=== PATIENT | female | born 1995 | race Caucasian/White ===

== ENCOUNTER → 2017-07-07 | Outpatient (CLI) | payer OTHER ==
--- NOTE | 2017-07-07 14:50 | MR ---
EXAMINATION TYPE: MR angio head wo con DATE OF EXAM: 07/07/2017 COMPARISON: NONE HISTORY: Headache / Dizziness and giddiness TECHNIQUE: Time of flight images focusing on the [place] of [place] were performed without contrast.. 2-D and 3-D postprocessing imaging is performed on MRI scanner. FINDINGS: There is codominant vertebral basilar system. Vertebral arteries are patent to basilar junc tion. There are patent posterior communicating arteries identified bilaterally. There is no aneurysma l change or significant focal stenosis seen. Images of the anterior circulation show patent anterior communicating artery. There is no significant focal stenosis or aneurysmal change identified. IMPRESSION: No aneurysmal change at the level of the [place] of [place].
--- NOTE | 2017-07-07 14:53 | MR ---
EXAMINATION TYPE: MR brain wo con DATE OF EXAM: 07/07/2017 COMPARISON: NONE HISTORY: Headache / Dizziness and giddiness TECHNIQUE: Multiplanar, multisequence imaging of the brain and brainstem is performed without IV cont rast. FINDINGS: Diffusion weighted images demonstrate no evidence of a recent infarct or other diffusion abnormality. There is no extraaxial fluid collection or significant white matter signal abnormality. The ventricu lar system and cisternal spaces are normal in size and appearance. The brain volume is age appropria te. Midline structures demonstrate normal morphology. The craniocervical junction appears within normal limits. Normal vascular flow voids are present. The visualized sinuses are clear and the globes are i ntact. IMPRESSION: Unremarkable study. No significant finding is seen to account for patient's symptoms.
== END | disposition home or self-care (01) ==
LOC: RADMRIMAIN 13:43
PROVIDERS: ATTEND Psychiatry & Neurology Neurology
DX: R51 Headache (principal); R42 Dizziness and giddiness
CPT/HCPCS: 70544; 70551